=== PATIENT | female | born 1955 | race Hispanic/Latino ===

== ENCOUNTER 2021-04-03 13:49 | Emergency (ER) | payer OTHER | END 2021-04-03 15:10 | disposition home or self-care (01) | LOC: ERS 13:49 | DX: S52.124A Nondisplaced fracture of head of right radius, initial encounter for closed fracture (principal); M25.512 Pain in left shoulder; G89.29 Other chronic pain; W01.0XXA Fall on same level from slipping, tripping and stumbling without subsequent striking against object, initial encounter ==